=== PATIENT | female | born 1995 | race Caucasian/White ===

== ENCOUNTER → 2018-10-04 | Outpatient (CLI) | payer OTHER ==
[2018-10-04 16:20] LABS: CREATININE 0.9 mg/dL (0.6-1.3)
[2018-10-09 11:07] LABS: ANA INTERPRETATION Negative (Negative)
== END ==
LOC: M.LAB 09-07 15:26 → M.MRI 09-20 15:30 → M.LAB 15:30
PROVIDERS: Psychiatry & Neurology Neuromuscular Medicine
DX: M53.82 Other specified dorsopathies, cervical region (principal); R20.2 Paresthesia of skin; R20.0 Anesthesia of skin

== ENCOUNTER → 2018-11-02 | Outpatient (CLI) | payer OTHER, BC ==
[2018-11-02 11:23] VITALS: BP 125/65
[2018-11-02 11:45] VITALS: BP 122/70
[2018-11-02 12:00] VITALS: BP 113/64
[2018-11-02 12:00] LABS: CSF GLUCOSE 51 mg/dl (40-70); CSF PROTEIN 34.8 mg/dl (15-45)
[2018-11-02 12:30] VITALS: BP 119/70
[2018-11-02 12:39] LABS: CSF CLARITY CLEAR; CSF COLOR COLORLESS; CSF RBC 0 /mm3; CSF WBC 1 /mm3 (0-10); VOLUME 14 ml
[2018-11-05 13:07] LABS: CSF ALBUMIN 12 mg/dL (11-48); CSF IGG INDEX 1.9 (0.0-0.7); CSF IgG 4.5 mg/dL (0.0-8.6); CSF/SERUM ALBUMIN INDEX 3 (0-8)
== END | disposition home or self-care (01) ==
LOC: M.LAB 10-19 17:15
PROVIDERS: Psychiatry & Neurology Neuromuscular Medicine
DX: R20.2 Paresthesia of skin (principal)

== ENCOUNTER → 2018-12-03 | Outpatient (CLI) | payer OTHER, BC ==
[2018-12-03 11:45] VITALS: BP 120/73
[2018-12-03 12:26] LABS: ABSOLUTE BASOPHILS 0.1 thou/uL (0.0-0.2); ABSOLUTE EOSINOPHILS 0.1 thou/uL (0.0-0.7); ABSOLUTE LYMPHOCYTES 1.3 thou/uL (0.8-5.3); ABSOLUTE MONOCYTES 0.6 thou/uL (0.0-1.2); ABSOLUTE NEUTROPHILS 3.8 thou/uL (1.6-8.1); BASOPHILS 0.9 %; EOSINOPHILS 2.1 %; HEMATOCRIT 40.5 % (37.0-47.0); HEMOGLOBIN 13.6 gm/dL (12.0-15.0); LYMPHOCYTES 21.6 %; MCH 28.4 pg (26.0-34.0); MCHC 33.5 g/dL (28.0-37.0); MCV 84.8 fL (80.0-100.0); MONOCYTES 10.7 %; NUCLEATED RBCS 0 /100WBC; PLATELET COUNT* 252 thou/uL (150-400); POLYS 64.7 %; RBC 4.77 mil/uL (4.20-5.00); RDW-CV 13.9 % (10.5-14.5); WBC 5.9 thou/uL (4.0-11.0)
[2018-12-03 12:35] LABS: ALBUMIN 3.7 g/dL (3.4-5.0); CALCIUM 9.5 mg/dL (8.5-10.1); CREATININE 0.9 mg/dL (0.6-1.3); TOTAL BILIRUBIN 0.3 mg/dL (<0.1-1.0); TOTAL PROTEIN 7.5 g/dL (6.4-8.2)
[2018-12-03 14:05] VITALS: BP 124/74
--- NOTE | 2018-12-03 16:31 | NUR ---
ARRIVED AMBULATORY. MADE SELF COMFORTABLE. MOTHER REMAINED AT CHAIRSIDE. INFUSION COMPLETED AND TOELRATED WELL. IV FLUSHED AND WRAPPED IN [place] FOR USE TOMORROW. DISCHARGE INSTRUCTION REVIEWED. VOICED UNDERSTANDING AND AGREED.
== END ==
LOC: M.INFUS 11:30
PROVIDERS: Psychiatry & Neurology Neuromuscular Medicine
DX: G35 Multiple sclerosis (principal)

== ENCOUNTER → 2018-12-04 | Outpatient (CLI) | payer OTHER, BC ==
[2018-12-04 11:25] VITALS: BP 133/62
[2018-12-04 12:45] VITALS: BP 122/75
== END ==
LOC: M.INFUS 05:10
DX: G35 Multiple sclerosis (principal)

== ENCOUNTER → 2018-12-05 | Outpatient (CLI) | payer OTHER, BC ==
[2018-12-05 11:35] VITALS: BP 128/74
[2018-12-05 13:05] VITALS: BP 132/74
--- NOTE | 2018-12-05 13:20 | NUR ---
IV STILL INTACT AND PATENT WITH NO SIGN OF INFECTION NOTED. DENIES ADVERS REACTION TO PRIOR INFUSION OF SAME. INFUSION COMPLETED AND TOELRATED WELL. IV FLUSHED AND WRAPPED IN GAUZE. DENIES QUESTIONS OR NEEDS AT DISCHARGE.
== END ==
LOC: M.INFUS 05:23
DX: G35 Multiple sclerosis (principal)

== ENCOUNTER → 2018-12-06 | Outpatient (CLI) | payer OTHER, BC ==
[2018-12-06 11:35] VITALS: BP 132/77
[2018-12-06 12:36] VITALS: BP 130/70
== END ==
LOC: M.INFUS 04:54
DX: G35 Multiple sclerosis (principal)

== ENCOUNTER → 2018-12-07 | Outpatient (CLI) | payer OTHER, BC ==
[2018-12-07 11:30] VITALS: BP 122/62
--- NOTE | 2018-12-07 12:47 | NUR ---
PATIENT SOLUMEDROL INFUSION COURSE COMPLETE, TOLERATED WELL WITH MINIMAL TO NO SIDE EFFECTS. DISCHARGE INSTRUCTIONS REVIEWED WITH MOTHER AND PATIENT, PERIPHERAL IV DISCONTINUED AND PRESSURE HELD WITH COTTON BALL AND STRETCH GAUZE. PATIENT AMBULATED TO ENTRANCE WITH MOTHER AT SIDE.
== END ==
LOC: M.INFUS 01:42
DX: G35 Multiple sclerosis (principal)

== ENCOUNTER → 2018-12-21 | Outpatient (CLI) | payer OTHER, BC | LOC: M.LAB 10:40 → M.MRI 11:30 | DX: G35 Multiple sclerosis (principal); R20.2 Paresthesia of skin ==